=== PATIENT | male | born 1940 | race Caucasian/White ===

== ENCOUNTER 2020-12-23 09:13 | Outpatient (CLI) | payer MEDICARE, OTHER, SELFPAY ==
[2020-12-23] MEDS: 0.9% Saline Lock 10 ML Syringe IV (09:42)
[2020-12-23 09:47] VITALS: BP 143/87; PULSE 92; RESP 16; TEMP 38.2; O2SAT 96; BMI 25.8
[2020-12-23] MEDS: Acetaminophen 325 MG Tablet 650 MG PO (09:59)
[2020-12-23 10:18] VITALS: BP 127/58; PULSE 84; RESP 16; TEMP 38.2; O2SAT 100
[2020-12-23 11:15] VITALS: BP 119/55; PULSE 72; RESP 16; TEMP 37.2; O2SAT 97
== END 2020-12-23 11:15 | disposition home or self-care (01) ==
LOC: MS3OUT 09:14 → MS3 09:14
PROVIDERS: Referring Provider Nurse Practitioner Acute Care; Visit Provider Nurse Practitioner Acute Care
DX: U07.1 COVID-19 (principal)
CPT/HCPCS: J7050; M0243; A4216; Q0240

== ENCOUNTER 2021-05-29 17:31 | Emergency (ER) | payer MEDICARE, OTHER, SELFPAY ==
[2021-05-29 17:32] VITALS: BP 178/87; PULSE 81; RESP 16; TEMP 36.7; O2SAT 98; BMI 27.3
--- NOTE | 2021-05-29 18:01 | EDS_ITS ---
HPI History of Present Illness Chief Complaint: Weakness Informant: patient Onset/Context/Timing Onset: Today Current Severity: Gone Maximum Severity: Moderate Narrative Narrative: Patient presents after having a period of weakness and dizziness at home. Patient states he is felt slightly clumsy the last few days and feels like his feet are going very wants them to. Today he was helping his clean the floor mats from her car. When he stood up he felt like everything was spinning and he became nauseated and diaphoretic. He denies chest pain or palpitations. He feels that symptoms are improved currently. [facility] Medical History Hypertension Home Medications lisinopril 2.5 mg PO DAILY 12/23/20 [History Last Taken Unknown] Allergy/AdvReac Type Severity Reaction Status Date / Time No Known Allergies Allergy Verified 05/29/21 17:35 Social History Smoking Status: Former smoker ROS ROS ED Constitutional Constitutional ED: Denies chills or fever(s) Eyes Eyes: Denies change in vision ENT ENT ED: Denies sore throat Cardiovascular Cardiovascular: Denies chest pain or palpitations Respiratory/Chest Respiratory/Chest: Denies cough or dyspnea Gastrointestinal Gastrointestinal: Denies abdominal pain, nausea or vomiting Genitourinary Genitourinary ED: Denies dysuria Musculoskeletal Musculoskeletal: Denies back pain or neck pain Integumentary Denies rash Neurologic Neurologic: Denies headache(s) or weakness Allergic/Immunologic Allergic/Immunologic ED: Denies urticaria EXAM Physical Exam Const Vital Signs: 05/29/21 17:32 05/29/21 17:51 05/29/21 19:02 Temperature 98.1 F Temperature Source Temporal Pulse Rate 81 59 L Respiratory Rate 16 16 Respiratory Effort Normal Non-Labored Respiratory Pattern Normal Blood Pressure 178/87 H 144/73 H Blood Pressure Mean 117 96 Pulse Ox 98 98 Oxygen Delivery Method Room Air Room Air 05/29/21 20:20 05/29/21 20:26 Temperature Temperature Source Pulse Rate 66 65 Respiratory Rate 15 18 Respiratory Effort Respiratory Pattern Blood Pressure 129/90 H 159/93 H Blood Pressure Mean 103 115 Pulse Ox 96 98 Oxygen Delivery Method Room Air Room Air Positive well nourished and well developed General Appearance ED: well developed HEENT Reports moist mucous membranes Eyes PERRL and EOMs intact bilaterally Neck no lymphadenopathy and supple Chest Wall inspection of chest normal and palpation of chest normal Resp normal respiratory effort and clear to auscultation bilaterally Cardio regular rate and regular rhythm GI normal to inspection, nondistended, normoactive bowel sounds and non-tender Palpation: soft Extremity normal to inspection Neuro oriented x3 and no sensory deficits noted Neuro Narrative: NIH equals 0 at time of my exam. Sensorium / Orientation: alert Motor Exam: strength 5/5 throughout Psych mental status grossly normal Skin no rashes or lesions noted MDM MDM MDM Narrative Medical decision making narrative: EKG and lab work obtained. CTA of the head and neck ordered. Lab Data Attestation: I reviewed the patient's lab results. Labs: Laboratory Results - last 24 hr 05/29/21 05/29/21 18:22 18:22 WBC 10.9 RBC 4.61 Hgb 14.8 Hct 41.4 MCV 89.8 MCH 32.1 H MCHC 35.7 RDW Std Deviation 38.1 RDW Coeff of Oh 11.8 Plt Count 236 MPV 9.5 Immature Gran % (Auto) 0.600 Neut % (Auto) 73.1 H Lymph % (Auto) 19.4 [place] % (Auto) 5.8 Eos % (Auto) 0.7 Baso % (Auto) 0.4 Absolute Neuts (auto) 8.0 H Absolute Lymphs (auto) 2.11 Nucleated RBC % 0 Sodium 139 Potassium 3.6 Chloride 106 Carbon Dioxide 30.0 Anion Gap 3 L BUN 20 H Creatinine 1.17 Estim Creat Clear Calc 47.86 Est GFR (MDRD) Af Amer 77 Est GFR (MDRD) Non-Af 64 BUN/Creatinine Ratio 17.1 Glucose 106 Calcium 9.1 Troponin I High Sens 6 Radiography Diagnostic Testing: Clinical Impression(s) from Imaging Studies Head/Neck CTA 05/29/21 19:10 IMPRESSION: Normal CTA Head and neck with contrast. Electronically Signed: Darryl Cornejo DO at 19:58 EDT , EKG Initial EKG: Interpretation: Sinus Bradycardia (Sinus bradycardia 56 bpm. Right bundle branch block noted.) Treatment and Re-Evaluation Narrative: On repeat evaluation patient is resting comfortably. Has had no further symptoms in the emergency room. He is able to get up and ambulate in the ER without difficulty. Patient symptoms did come on after he was squatting down cleaning some mats. He may have had orthostatic hypotension causing his lightheadedness and nausea. His symptoms seem to be completely resolved at this time. Discharge Plan Triage Chief Complaint: Weakness ED Provider: Mayela Ingram Dx/Rx/DC Orders Clinical Impression: Dizziness Instructions: ED Weakness (Uncertain Cause) Prescriptions: No Action lisinopril 2.5 mg tablet 2.5 mg PO DAILY RF: 0 Primary Care Provider: Kehinde Rodriguez Referrals: Kehinde Rodriguez DO [Primary Care Provider] - 5-7 Days Disposition Disposition: Home, Self Care
--- NOTE | 2021-05-29 18:01 | EKG12_ITS ---
Test Reason : DYSRHYTHMIA Blood Pressure : / mmHG Vent. Rate : 056 BPM Atrial Rate : 056 BPM P-R Int : 184 ms QRS Dur : 140 ms QT Int : 474 ms P-R-T Axes : 031 -39 004 degrees QTc Int : 457 ms Sinus bradycardia with sinus arrhythmia Left axis deviation Right bundle branch block Abnormal ECG Confirmed by ASHER VIVEROS, NARAYAN ([id number]), editor trade journal [employer] ([id number]) on 06/01/2021 9:12:12 AM Referred By: DWAYNE Confirmed By:NARAYAN STERLING MD
[2021-05-29 18:30] LABS: Absolute Lymphocyte Count 2.11 X10^3/uL (0.83-4.51); Basophil# 0.04 X10^3/uL; Basophil% 0.4 % (0-1); Eosinophil# 0.08 X10^3/uL; Eosinophils% 0.7 % (0-5); Hematocrit 41.4 % (40-54); Hemoglobin 14.8 g/dL (13.0-16.5); Lymphocyte # 2.11 X10^3/ul (0.83-4.51); Lymphocyte % 19.4 % (19-41); Mean Corp Hgb Conc 35.7 g/dL (32-36); Mean Corpuscular Hgb 32.1 pg (27.0-32.0); Mean Corpuscular Volume 89.8 fL (80-94); Mean Platelet Vol. 9.5 fl (6.2-12.0); Monocyte# 0.63 X10^3/uL; Monocyte% 5.8 % (0-10); NRBC Flagged by Analyzer 0 % (0-5); Neutrophil # 7.95 X10^3/uL (2.7-7.7); Neutrophil % 73.1 % (47-70); Platelet Count 236 K/mm3 (150-450); RBC Distribution Width CV 11.8 % (11.6-14.6); RBC Distribution Width SD 38.1 fl (35.1-43.9); Red Blood Count 4.61 M/mm3 (4.6-6.2); White Blood Count 10.9 K/mm3 (4.4-11.0)
[2021-05-29 18:58] LABS: Anion Gap 3 (5-15); BUN 20 mg/dL (7-18); BUN/Creat Ratio 17.1 RATIO (10-20); Calcium,Total 9.1 mg/dL (8.5-10.1); Chloride 106 mmol/L (98-107); Creatinine, Serum 1.17 mg/dL (0.70-1.30); EST Glomerular Filtration Rate 64 mL/min (>60); Est Glom Filt Rate - Afr Amer 77 mL/min (>60); Estimated Creatinine Clearance 47.86 ml/min; Glucose 106 mg/dL (74-106); Potassium 3.6 mmol/L (3.5-5.1); Sodium Level 139 mmol/L (136-145); Troponin-I HS 6 pg/mL (3.0-78.0)
[2021-05-29 19:02] VITALS: BP 144/73; PULSE 59; RESP 16; O2SAT 98
--- NOTE | 2021-05-29 19:10 | CT_ITS ---
STUDY: CTA HEAD AND NECK WITH CONTRAST REASON FOR EXAM: Male, 81 years old. vertigo RADIATION DOSAGE (If Supplied By Facility): CTDIvol = ( 31.03 ) mGy, DLP = ( 1610.86 ) mGycm TECHNIQUE: CT angiography was performed with a multi-detector CT scanner. Data acquisition was obtained from the skull base through the vertex following intravenous administration of IV 100mL [id number]-370. MIP images were reconstructed from the axial data set. Post-processing of the angiographic images was performed, with multiplanar reformation and 3D reconstruction. Individualized dose optimization techniques were used for this CT. COMPARISON: No relevant priors. FINDINGS: Normal bilateral petrous carotid arteries. Normal right cavernous carotid artery with a normal supraclinoid bifurcation. Normal left cavernous carotid artery with a normal supraclinoid bifurcation. Normal right A1 segments of the anterior cerebral artery. Normal left A1 segments of the anterior cerebral artery. Normal intact anterior communicating artery (ACOM). Normal bilateral A2 segments of the anterior cerebral arteries. Normal right M1 and M2 segments of the middle cerebral arteries, with a normal M1 bifurcation. Normal left M1 and M2 segments of the middle cerebral arteries, with a normal M1 bifurcation. Normal right posterior communicating artery (PCOM). Normal left posterior communicating artery (PCOM). Normal bilateral vertebral arteries. Normal basilar artery with a normal basilar bifurcation. The visualized bilateral superior cerebellar (SCA) arteries are normal. Normal bilateral P1, P2 and visualized P3 segments of the posterior cerebral arteries. There is no demonstrated aneurysm of the [place]. There is no demonstrated abnormality of the visualized brain. AORTIC ARCH: Normal visualized aortic arch. Normal origins of the brachiocephalic, left common carotid, and left subclavian arteries. RIGHT CAROTID ARTERIES: Normal right common carotid artery (CCA). Normal right common carotid bulb. Normal origin of the right internal carotid (ICA) artery without a hemodynamically significant stenosis. Normal visualized cervical portion of the right internal carotid artery. Normal origin of the right external carotid artery (ECA). LEFT CAROTID ARTERIES: Normal left common carotid artery (CCA). Normal left common carotid bulb. Normal origin of the left internal carotid (ICA) artery without a hemodynamically significant stenosis. Normal visualized cervical portion of the left internal carotid artery. Normal origin of the left external carotid artery (ECA). VERTEBRAL ARTERIES: Normal bilateral vertebral arteries. CT/CTA Head AND Neck W/ Contrast IMPRESSION: Normal CTA Head and neck with contrast. Electronically Signed: Darryl Cornejo DO at 19:58 EDT ,
[2021-05-29 20:20] VITALS: BP 129/90; PULSE 66; RESP 15; O2SAT 96
[2021-05-29 20:26] VITALS: BP 159/93; PULSE 65; RESP 18; O2SAT 98
[2021-05-29 20:29] VITALS: O2SAT 96
[2021-05-29 20:48] VITALS: BP 159/93; PULSE 87; RESP 18; O2SAT 96
== END 2021-05-29 20:49 | disposition home or self-care (01) ==
PROVIDERS: Emergency Provider Emergency Medicine; PCP Student in an Organized Health Care Education/Training Program; Visit Provider Emergency Medicine
DX: R42 Dizziness and giddiness (principal); R53.1 Weakness; I10 Essential (primary) hypertension; Z79.899 Other long term (current) drug therapy; Z87.891 Personal history of nicotine dependence
CPT/HCPCS: 70496; 70498; 80048; 84484; 85025; 93005; 99285; A4216

== ENCOUNTER 2021-06-03 15:51 | Emergency (ER) | payer MEDICARE, OTHER, SELFPAY ==
[2021-06-03 15:52] VITALS: BP 182/104; PULSE 84; RESP 18; TEMP 36.6; O2SAT 99; BMI 28.2
[2021-06-03 16:07] VITALS: BP 130/78; PULSE 88; RESP 16; O2SAT 98
--- NOTE | 2021-06-03 16:08 | EX.ED.DYSGE1 ---
HPI History of Present Illness Chief Complaint: Hypertension Detail of Chief Complaint: Systolic hypertension Informant: patient Onset/Context/Timing Onset: Days Context: Gradual Onset Timing: Continuous Quality: Asymptomatic hypertension Location: Cardiovascular Current Severity: Mild Maximum Severity: Mild Worsened by: Nothing Relieved by: Nothing Associated Symptoms Associated Symptoms: Nothing Narrative Narrative: Patient is a 81-year-old male with history of hypertension who was on 2.5 mg lisinopril daily. He was seen on May 29 for dizziness. Work-up at that time was unremarkable. He was noted to have an elevated blood pressure at that time. There was no evidence of endorgan injury or dysfunction. He follow-up with his primary care physician. Primary care physician increased his lisinopril 2 days ago to 20 mg a day. He is not on a thiazide diuretic. He denies any change in diet or activity. He denies headache, double vision, blurred vision loss of vision. He denies ringing his ears or decreased hearing from baseline.. He does wear hearing aids. He denies trouble with speech or swallowing. He denies cardiac respiratory symptoms. He denies upper back pain. He denies paresthesia, anesthesia motors. Denies problems with coordination or balance. He has not noted any abnormality with respect to his ability to ambulate. Prior similar symptoms: No Recent Illness/Hospitalization: Yes [facility] Medical History Hypertension Home Medications lisinopril 2.5 mg PO DAILY 12/23/20 [History Last Taken Unknown] Allergy/AdvReac Type Severity Reaction Status Date / Time No Known Allergies Allergy Verified 06/03/21 15:54 Social History (Updated 06/03/21 @ 16:[address] Roscoe Montanez MD) household members: spouse Smoking Status: Former smoker substance use type: does not use ROS ROS ED Constitutional Constitutional ED: Denies chills, fever(s), subjective, sweats or weight loss Eyes Eyes: Denies blurry vision, change in vision or diplopia ENT ENT ED: Denies ear pain, rhinorrhea or sore throat Cardiovascular Cardiovascular: Denies chest pain, orthopnea, palpitations, paroxysmal nocturnal dyspnea or racing heartbeat Respiratory/Chest Respiratory/Chest: Denies cough, dyspnea, dyspnea on exertion, orthopnea or paroxysmal nocturnal dyspnea Gastrointestinal Gastrointestinal: Denies abdominal pain, nausea or vomiting Genitourinary Genitourinary ED: Denies dysuria, hematuria or urinary frequency Musculoskeletal Musculoskeletal: Denies arthralgias, back pain, myalgias or neck pain Neurologic Neurologic: Denies headache(s), paresthesias or weakness Endocrine Endocrinology: Denies polydipsia, polyphagia or polyuria Allergic/Immunologic Allergic/Immunologic ED: Denies mouth swelling, tongue swelling or urticaria EXAM Physical Exam Const Vital Signs: 06/03/21 15:52 06/03/21 16:01 06/03/21 16:10 Temperature 97.8 F Temperature Source Temporal Pulse Rate 84 79 Respiratory Rate 18 18 Respiratory Pattern Normal Blood Pressure 182/104 H 156/86 H Blood Pressure Mean 130 109 Pulse Ox 99 98 Oxygen Delivery Method Room Air Room Air Positive well nourished and well developed General Appearance ED: well developed and NAD; Negative for cyanotic, diaphoretic or pallor HEENT Reports TM's clear and moist mucous membranes HEENT Narrative: Uvula midline. No deviation tongue with protrusion. There is no erythema or exudate. Negative for trauma or tenderness Tympanic Membrane ED: Yes TM's clear Eyes PERRL and EOMs intact bilaterally Eyes Narrative: There is no nystagmus. There is no APD. General Eye ED: Negative for pale conjunctiva or scleral icterus Neck no lymphadenopathy, supple and no JVD Neck Narrative: There is no carotid bruits noted. Resp normal respiratory effort and clear to auscultation bilaterally Cardio regular rate, regular rhythm, S1 normal heart sound, S2 normal heart sound and no murmurs GI normal to inspection, nondistended, normoactive bowel sounds and non-tender Palpation: soft Extremity normal to inspection Extremity Narrative: DP and PT pulse are 2+. Radial pulses 2+. General Extremety ED: Negative for edema or tenderness General Extremity: Negative for edema Neuro oriented x3, CN's II-XII intact bilaterally and no sensory deficits noted Neuro Narrative: There is no dysmetria. Gait was observed and normal. DTRs are 1-2+ symmetric with no clonus or Babinski sign. Sensorium / Orientation: alert Motor Exam: strength 5/5 throughout Psych mental status grossly normal Skin no rashes or lesions noted and no wounds General Skin Exam: Negative for jaundice or pallor MDM MDM MDM Narrative Medical decision making narrative: Patient with asymptomatic hypertension. Patient had blood work 5 days ago. There is no evidence of endorgan dysfunction. His blood pressure was elevated at that time. First blood pressure reading was 182/104. Would prompt the patient to come in is that his systolic was 179 at one facility went to a different facility and it was 189. He states he purchased a blood pressure cuff but the blood pressure readings have varied significantly. Second blood pressure 50 minutes after first is 156/86. Patient remains asymptomatic. Blood pressure is elevated but not significantly. Patient was informed since he is asymptomatic recommendation is to keep appointment in 2 weeks with his doctor for blood pressure recheck and not to check his blood pressure unless he is symptomatic. Discharge Plan Triage Chief Complaint: Hypertension ED Provider: Roscoe Montanez Dx/Rx/DC Orders Clinical Impression: Asymptomatic hypertension Instructions: ED Hypertension, Established Prescriptions: No Action lisinopril 2.5 mg tablet 2.5 mg PO DAILY RF: 0 Primary Care Provider: Kehinde Rodriguez Referrals: Kehinde Rodriguez, [Primary Care Provider] - Keep [place] appointment Disposition Disposition: Home, Self Care
[2021-06-03 16:10] VITALS: BP 156/86; PULSE 79; RESP 18; O2SAT 98
[2021-06-03 17:02] VITALS: BP 125/77; PULSE 78; RESP 16; TEMP 37.1; O2SAT 98
[2021-06-03 17:10] VITALS: BP 125/77; PULSE 66; RESP 18; O2SAT 98
--- NOTE | 2021-06-07 17:43 | CM.ED ---
ER RNCM DC F/u Call: Seen in ER 06.03.21 for HTN Called patient listed cell number, patient answered and this junior copywriter introduced self and role. Patient states that he is feeling fine and BP better, denies dizziness. States currently in [place]. Denies any issues or concerns at this time. Lin Sams RNCM
== END 2021-06-03 17:17 | disposition home or self-care (01) ==
PROVIDERS: Emergency Provider Emergency Medicine; PCP Student in an Organized Health Care Education/Training Program; Visit Provider Emergency Medicine
DX: I10 Essential (primary) hypertension (principal); Z79.899 Other long term (current) drug therapy; Z87.891 Personal history of nicotine dependence
CPT/HCPCS: 99282

== ENCOUNTER 2021-08-08 12:00 | Outpatient (RCR) | payer MEDICARE, OTHER, SELFPAY ==
--- NOTE | 2021-07-11 11:48 | HP.PTEVAL_ITS ---
Patient's Visit Information TIFFANY MARY is a 81 year old M referred to Physical Therapy by Dr. Kehinde Rodriguez DO with a diagnosis of Chronic R shoulder pain and L greater troch bursitis.. Date of Evaluation: 07/11/21 Physical Therapist: KAUR Mancilla - Visit Plan Frequency: 2x /Week Duration: 3 Weeks Plan: 2X/ week for 3 weeks for stretching/foam rolling of the L hip flexors, Hamstrings, IT band, piriformis, core stability, SCAPULAR strength, RC strength, postural exercises with HEP and also independent gym set up. May use US or other modalities as needed. HEP: Green t-band mid rows, seated Piriformis stretch and Standing wall L IT band stretch, WATCH POSTURE - Subjective Pt Dr thinks he shoulder come because he has bursitits in L hip and pain in R shoulder. The pain in the shoulder comes when he goes to bed and lays on it. With regular activities he hardly feels it. His hip pain comes and goes. His LBP comes and goes. He has noticed some tingling in his hands and in his legs more than he used to have. He is scheduled to have a few US and echocardiogram this week due to BP issues. He currently has pain in his L hip like 03/20. Pt is R handed and can do everything during the day without pain unless he lifts out to the side or something crazy. L hip pain comes on when he is sitting. If he gets up and moves around it goes away. The hip abd machine helps to relieve his pain sometimes. Stair: he has no pain and no trouble up and down stairs. If he lays on his L hip hip he will start to feel it. His back pain starts to hurt when he is doing something bent over or yard work. He takes 3 IBprof and the pain goes away and he has had LBP since he was 37 year old. X-ray of hips 5 years ago. - Pain L hip pain Pain Intensity (Out of 10): 1 R shoulder pain Pain Intensity (Out of 10): 0 Pain Intensity Range: 3 Comment: lay on it - Objective Gait: Normal gait pattern. LE MMT: B hip abd 4+/5, 3/4 normal ROM bridge, L hip ext 4/5 and R hip ext 4-/5, B knee flex and ext 4+/5. Pt is able to heel and toe raise. Tight B HS, hip flexors and gastroc. Tight with pain at end range IT Band stretch. palptaion: tender at bottom of the greater trochanter. Posture: sits with rounded shoulders and scapular protraction. R shoulder AROM: WFL AROM in all planes. L shoulder AROM: WFL AROM in all planes. R shoulder MMT: flexion 4-/5 (slight increase pain), abd 4-/5 (slight increase pain), ER 4/5(increase pain), IR 4/5. L shoulder MMT: flex, abd, IR, and ER 4/5 ( no pain). Palpation: tender under the acromion Pt has some scapular winging. - Balance/Special Test Scores Quick DASH Score: 15.9075 - Goals Goal 1:: I HEP and H&W gym program. Goal Time Frame: 4-6 Weeks Goal 2:: Increase HS, IT band and hip flexor flexibility Goal Time Frame: 4-6 Weeks Goal 3:: Increase ability to sit with upright posture with scapular retraction Goal Time Frame: 4-6 Weeks Goal 4:: Be able to sleep on R shoulder without pain Goal Time Frame: 4-6 Weeks Goal 5:: Be able to sit with no L hip pain and decrease L hip pain by 50% - Rehabilitation Potential Rehabilitation Potential: Good - Anticipated Interventions Patient/Client Instruction: Educate patient on: Condition, Plan of Care For the Purpose of:: To decrease pain, To increase ROM, To improve nutrient delivery to tissue, To improve muscle performance and motor function, To improve ability to perform ADL's, To increase tolerance to activity/condition/position, To improve performance and independence with ADL's, To decrease level of supervision to perform tasks, To improve ability of physical actions for home/community/work/leisure, To improve gait and locomotor functions, To improve health of tissue, To decrease soft tissue restriction, To increase flexibility/ROM Therapeutic Exercise to Include: Strength training, Postural training, Flexibilty training, Gait and locomotor training, Neuromotor development, Passive ROM, Active ROM, Dynamic Lumbar Stabilization, Scapular Strength/Stabilization For the Purpose of:: To decrease pain, To increase ROM, To improve muscle performance and motor function, To improve ability to perform ADL's, To increase tolerance to activity/condition/position, To improve performance and independence with ADL's, To decrease level of supervision to perform tasks, To improve health of tissue, To decrease soft tissue restriction, To increase flexibility/ROM Manual Therapy Techniques to Include: Mobilization, Passive ROM, Soft tissue mobilization For the Purpose of:: To decrease pain, To decrease swelling/inflammation, To increase ROM, To improve nutrient delivery to tissue, To improve muscle performance and motor function, To improve ability to perform ADL's, To increase tolerance to activity/condition/position, To improve gait and locomotor functio ns, To improve health of tissue, To decrease soft tissue restriction, To increase flexibility/ROM Thermo therapy (hot pack): Yes Ultrasound (thermal/non thermal): Yes For the Purpose of:: To decrease pain, To decrease swelling/inflammation, To increase ROM, To improve nutrient delivery to tissue Thank you for the opportunity to evaluate your patient. For Medicare and Medicare HMO plans, please review the plan of care and approve it. It will need to be FAXED BACK to us at [phone] for Medicare purposes. For Medicare only, by signing this I certify the plan of care. Please let me know if there are questions or concerns regarding this plan of care. Physician Signature: Date:
--- NOTE | 2021-08-08 12:57 | HP.PTDCSUM ---
It has been my pleasure to treat TIFFANY MARY referred by Dr. Kehinde Rodriguez DO, with the diagnosis of Chronic R shoulder pain and L greater troch bursitis. for a total of 7 visit(s). Discharge Date: 08/08/21 Please see the following information for a summary of their discharge status. Subjective: Pt is able to get comfortable in the night now but his hip pain still comes and goes. The stretches help it go away for 1/2 day to whole day. He is stretching and will continue to stretch everyday. His R shoulder only aches every now and then and he is able to lay on his R shoulder now which is improvement L hip pain Pain Intensity (Out of 10): 2 R shoulder pain Pain Intensity (Out of 10): 0 % Improvement: 60 Objective/Function: IT band length is improved and no pain on the L. Goal 1:: I HEP and H&W gym program. Goal Progress: Goal Met Goal 2:: Increase HS, IT band and hip flexor flexibility Goal Progress: Goal Met Goal 3:: Increase ability to sit with upright posture with scapular retraction Goal Progress: Goal Met Goal 4:: Be able to sleep on R shoulder without pain Goal Progress: Goal Met Goal 5:: Be able to sit with no L hip pain and decrease L hip pain by 50% Goal Progress: Goal Met Plan: DC PT to HEP Discharge Comments: DC PT to HEP If there are questions or concerns regarding this patient's physical therapy, please feel free to call me at [phone]. Thank you for the referral of this patient. Sincerely, Estefany dEge, MPT Balance/Gait/Functional tests - Balance/Special Test Scores Quick DASH Score: 9.0900
== END 2021-08-08 19:00 | disposition home or self-care (01) ==
LOC: PT 12:00
PROVIDERS: PCP Student in an Organized Health Care Education/Training Program; Referring Provider Student in an Organized Health Care Education/Training Program; Visit Provider Student in an Organized Health Care Education/Training Program
DX: M25.511 Pain in right shoulder (principal); G89.29 Other chronic pain; M70.62 Trochanteric bursitis, left hip
CPT/HCPCS: 97110; 97162

== ENCOUNTER 2024-04-10 12:00 | Outpatient (RCR) | payer MEDICARE, OTHER, SELFPAY ==
--- NOTE | 2024-03-19 12:54 | HP.PTEVAL_ITS ---
Patient's Visit Information Visit Information Visit Information: TIFFANY MARY is a 83 year old M referred to Physical Therapy by Dr. Kehinde Rodriguez DO with a diagnosis of CHRONIC MIDLINE BACK PAIN WITHOUT SCIATICA. Date of Evaluation: 03/19/24 Physical Therapist: Jani Valente, PT, Cert MDT, OCS Visit Plan Frequency: 2x /Week Duration: 4 Weeks Plan: PT INTERVENTIONS DLS ,POSTURAL EX'S ,LUMBAR FLEXION LE FLEXABILITY AND PROGRESS TO A GYM BASED PROGRAM Subjective Subjective: Thi 83 y/o male present to physical therapy with lumbar pain. Yocasta ent has back pain many years . Routine visit 6 months and recommended PT. Patient states lumbar pain insidious onset no reason. Pain progressively worsen . No imaging. Symmetrical location left > right. Described as ache. Aggravating not specific with activity other then bending like shoveling snow .Alleviating rest and . Bowel /bladder- Coughing/sneezing-. Pain doesn't affects sleeping. Denies paresthesia/tingling-. Patient condition affects QOL and function. Patient goals to mange pain. Patient is a member at and does [employer] classes. SOCIAL: VOCATION: retired Pain Bilateral Back: Pain Intensity (Out of 10): 1 Pain Intensity Range: 10 Objective Objective: POSTURE: Mild forward posture GAIT: reciprocal pattern mild forward posture PALAPTION: unremarkable MMT: quads/hams/hip ,ankle 4/5 FLEXABILITY: hamstrings min tight LUMBAR ROM: flexion mon loss , extension mod loss ,side glides mod loss Special Tests L/S Slump test left side: Negative L/S Slump test right side: Negative L/S Left Straight Leg Raise: Negative L/S Right Straight Leg Raise: Negative Balance/Special Test Scores Oswestry Low Back Score: 7 Goals Goal 1:: Patient to be I with HEP back and gym program Goal Time Frame: 4-6 Weeks Goal 2:: Patient to improve lumbar ROM for function of recovery for ADLS Goal Time Frame: 4-6 Weeks Goal 3:: Patient to demonstrate 750% improvement with less pain and improved function Goal Time Frame: 4-6 Weeks Goal 4:: Patient to improve back oswestry by 3-5 points to improve QOL Goal Time Frame: 4-6 Weeks Rehabilitation Potential Physical Therapy Diagnosis: This patient has left > right lumbar with pain with positioning and some motion testing thus benefit from skilled PT Rehabilitation Potential: Good Anticipated Interventions Patient/Client Instruction: Educate patient on: Condition and Plan of Care For the Purpose of:: To decrease pain, To increase ROM, To improve muscle performance and motor function, To improve ability to perform ADL's, To increase tolerance to activity/condition/position, To improve ability of physical actions for home/community/work/leisure, To improve health of tissue, To decrease soft tissue restriction and To increase flexibility/ROM Therapeutic Exercise to Include: Strength training, Postural training, Flexibi lty training and Dynamic Lumbar Stabilization For the Purpose of:: To decrease pain, To increase ROM, To improve muscle performance and motor function, To improve ability to perform ADL's, To increase tolerance to activity/condition/position, To improve performance and independence with ADL's, To improve ability of physical actions for home/community/work/leisure, To improve health of tissue, To decrease soft tissue restriction, To increase flexibility/ROM, To prevent re-injury and To improve tolerance to ADL's Text: Thank you for the opportunity to evaluate your patient. For Medicare and Medicare HMO plans, please review the plan of care and approve it. It will need to be FAXED BACK to us at [phone] for Medicare purposes. For Medicare only, by signing this I certify the plan of care. Please let me know if there are questions or concerns regarding this plan of care. Physician Signature:__ Date:
--- NOTE | 2024-04-10 12:41 | HP.PTDCSUM ---
Discharge Summary D/C summary: It has been my pleasure to treat TIFFANY MARY referred by Dr. Kehinde Rodriguez DO, with the diagnosis of CHRONIC MIDLINE BACK PAIN WITHOUT SCIATICA for a total of 7 visit(s). Discharge Date: Please see the following information for a summary of their discharge status. Subjective Subjective: Doing no pain. Patient is I with program Stiffness in back Pain Bilateral Back: Pain Intensity (Out of 10): 0 Overall Improvement % Improvement: 50 Objective Objective/Function: Objective: POSTURE: Mild forward posture GAIT: reciprocal pattern mild forward posture PALAPTION: unremarkable MMT: quads/hams/hip ,ankle 4/5 FLEXABILITY: hamstrings min tight LUMBAR ROM: flexion mmin loss , extension mod loss ,side glides min/ mod loss Goals Goal 1:: Patient to be I with HEP back and gym program Goal Progress: Goal Met Goal 2:: Patient to improve lumbar ROM for function of recovery for ADLS Goal Progress: Goal Met Goal 3:: Patient to demonstrate 750% improvement with less pain and improved function Goal Progress: Goal Met Goal 4:: Patient to improve back oswestry by 3-5 points to improve QOL Goal Progress: Goal Met Plan Plan: D/C D/C Information d/c sentence: If there are questions or concerns regarding this patient's physical therapy, please feel free to call me at [phone]. Thank you for the referral of this patient. Sincerely, Jani Valente, PT, Cert MDT, OCS Balance/Gait/Functional tests Balance/Special Test Scores Oswestry Low Back Score: 1 Improvement % Improvement: 50
== END 2024-04-10 19:00 | disposition home or self-care (01) ==
LOC: PT 12:00
PROVIDERS: PCP Student in an Organized Health Care Education/Training Program; Visit Provider Student in an Organized Health Care Education/Training Program
DX: M54.50 Low back pain, unspecified (principal); G89.29 Other chronic pain
CPT/HCPCS: 97110; 97162; 97530